=== PATIENT | female | born 1960 | race American Indian/Alaskan Native ===

== ENCOUNTER 2016-10-28 10:25 | Emergency (ER) | payer MEDICARE ==
--- NOTE | 2016-10-28 14:41 | XRay Report ---
ROUTINE CHEST, TWO VIEWS: HISTORY: Short of breath, rhonchi. The trachea, heart, mediastinal contour, lung mcgee and bony thorax are unremarkable. IMPRESSION: Unremarkable chest x-ray.
--- NOTE | 2016-10-28 14:46 | Emergency Department Report ---
ED Shortness of Breath HPI - General Chief Complaint: Dyspnea/Respdistress Stated Complaint: WHEEZING/CHEST PAIN/SWOLLEN Time Seen by Provider: 10/28/16 14:29 Source: patient Mode of arrival: Ambulatory Limitations: No Limitations - History of Present Illness Initial Comments: 56-year-old female comes in for wheezing 1 month left little swelling and shortness of breath. Patient reports she has a past medical history of bronchitis secondary to black mold exposure. Patient reports a constant nasal and chest congestion causing her to cough. Patient reports that since having difficulty walking up steps secondary to shortness of breath. She denies any nausea vomiting no fever no chills. - Related Data Home Medications Medication Instructions Recorded Confirmed Last Taken HYDROcodone/APAP 5-325 [[place]igon 11/19/13 11/19/13 Unknown 5/325 mg] Vivelle 11/19/13 11/19/13 Unknown Previous Rx's Medication Instructions Recorded Last Taken Type Amoxicillin/K Clav Tab [Augmentin 1 tab PO Q12H #14 tablet 11/19/13 Unknown Rx 875MG] Fluticasone Propionate [Flonase] 16 gm NS BID #120 spray.susp 11/19/13 Unknown Rx Prednisone [Prednisone 10 mg 10 mg PO .TAPER #1 tab.ds.pk 11/19/13 Unknown Rx (6-Day Pack, 21 Tabs)] Hyoscyamine Subl [Levsin Sl] 0.125 mg SL Q6HR PRN #14 tablet 09/22/14 Unknown Rx Omeprazole Magnesium [Prilosec Otc] 20 mg PO QDAY #7 tablet.dr 09/22/14 Unknown Rx Ondansetron [Zofran Odt] 8 mg PO TID PRN #7 tab.rapdis 09/22/14 Unknown Rx ALBUTEROL Inhaler [Proair] 2 puff IH QID PRN #1 inhalation 10/28/16 Unknown Rx Azithromycin [Zithromax] 250 mg PO QDAY #6 tablet 10/28/16 Unknown Rx Cetirizine HCl [ZyrTEC] 10 mg PO QDAY #30 capsule 10/28/16 Unknown Rx Fluticasone [Flonase] 1 spray NS QDAY #1 bottle 10/28/16 Unknown Rx Allergies Allergy/AdvReac Type Severity Reaction Status Date / Time No Known Allergies Allergy Unverified 11/19/13 11:40 ED Review of Systems ROS: Stated complaint: WHEEZING/CHEST PAIN/SWOLLEN Other details as noted in HPI Constitutional: denies: chills, fever ENT: denies: ear pain, throat pain Respiratory: cough, SOB with exertion, wheezing Cardiovascular: denies: chest pain, palpitations Gastrointestinal: denies: abdominal pain, nausea, diarrhea Genitourinary: denies: urgency, dysuria, discharge ED Past Medical Hx - Past Medical History Hx GERD: Yes Hx Arthritis: Yes (osteoperosis) Additional medical history: bulging disc L1, L2. herniated disc L4, L5 - Surgical History Additional Surgical History: hysterectomy, foot surgery, Right hand surgery, tonsilectomy - Social History Smoking Status: Former Smoker Substance Use Type: None - Medications Home Medications: Home Medications Medication Instructions Recorded Confirmed Last Taken Type Amoxicillin/K Clav Tab [Augmentin 1 tab PO Q12H #14 tablet 11/19/13 Unknown Rx 875MG] Fluticasone Propionate [Flonase] 16 gm NS BID #120 spray.susp 11/19/13 Unknown Rx HYDROcodone/APAP 5-325 [[place]igon 11/19/13 11/19/13 Unknown History 5/325 mg] Prednisone [Prednisone 10 mg 10 mg PO .TAPER #1 tab.ds.pk 11/19/13 Unknown Rx (6-Day Pack, 21 Tabs)] Vivelle 11/19/13 11/19/13 Unknown History Hyoscyamine Subl [Levsin Sl] 0.125 mg SL Q6HR PRN #14 tablet 09/22/14 Unknown Rx Omeprazole Magnesium [Prilosec Otc] 20 mg PO QDAY #7 tablet.dr 09/22/14 Unknown Rx Ondansetron [Zofran Odt] 8 mg PO TID PRN #7 tab.rapdis 09/22/14 Unknown Rx ALBUTEROL Inhaler [Proair] 2 puff IH QID PRN #1 inhalation 10/28/16 Unknown Rx Azithromycin [Zithromax] 250 mg PO QDAY #6 tablet 10/28/16 Unknown Rx Cetirizine HCl [ZyrTEC] 10 mg PO QDAY #30 capsule 10/28/16 Unknown Rx Fluticasone [Flonase] 1 spray NS QDAY #1 bottle 10/28/16 Unknown Rx ED Physical Exam - General Limitations: No Limitations General appearance: alert, in no apparent distress - Head Head exam: Present: atraumatic, normocephalic - Eye Eye exam: Present: PERRL, EOMI Pupils: Present: normal accommodation - Neck Neck exam: Present: normal inspection, lymphadenopathy (left tonsillary). Absent: tenderness - Respiratory Respiratory exam: Present: rhonchi. Absent: respiratory distress, chest wall tenderness - Cardiovascular Cardiovascular Exam: Present: regular rate, normal rhythm, normal heart sounds - GI/Abdominal GI/Abdominal exam: Present: soft. Absent: distended, tenderness ED Course Vital Signs 10/28/16 10/28/16 10/28/16 11:13 14:45 16:33 Temperature 98.8 F 98.4 F Pulse Rate 73 78 Pulse Rate [ 63 Anterior Bilateral Throughout] Respiratory 20 18 Rate Respiratory 20 Rate [Anterior Bilateral Throughout] Blood Pressure 140/92 Blood Pressure 131/72 [Left] O2 Sat by Pulse 100 98 Oximetry 10/28/16 16:48 Temperature Pulse Rate Pulse Rate [ 71 Anterior Bilateral Throughout] Respiratory Rate Respiratory 20 Rate [Anterior Bilateral Throughout] Blood Pressure Blood Pressure [Left] O2 Sat by Pulse Oximetry - Reevaluation(s) Reevaluation #1: 10/28/16 17:18 Patient is rhonchus after her first dose of DuoNeb. We reordered another DuoNeb patient seems to be clear at this time. If x-ray was clear no acute pulmonary processes 10/28/16 17:19 ED Medical Decision Making - Radiology Data Radiology results: image reviewed Ordering Physician: JEWEL STONE Date of Service: 10/28/16 Procedure(s): XR chest routine 2V Accession Number(s): [id number] cc: JEWEL STONE Fluoro Time In Minutes: ROUTINE CHEST, TWO VIEWS: HISTORY: Short of breath, rhonchi. The trachea, heart, mediastinal contour, lung mcgee and bony thorax are unremarkable. IMPRESSION: Unremarkable chest x-ray. Transcribed By: TTR Dictated By: TRE SELBY JR, MD Electronically Authenticated By: TRE SELBY JR, MD Signed Date/Time: 10/28/16 1436 - Medical Decision Making Patient's been evaluated by this provider in fast track chest x-ray was ordered order albuterol nebulizer. Most likely discharged patient with bronchitis and placed patient on Proventil Zyrtec's and a Z-Carlos. Patient verbalized understanding Critical care attestation.: If time is entered above; I have spent that time in minutes in the direct care of this critically ill patient, excluding procedure time. ED Disposition Clinical Impression: SOB (shortness of breath), Bronchitis Disposition: DISCHARGED TO HOME OR SELFCARE Is pt being admited?: No Does the pt Need Aspirin: No Instructions: Chronic Bronchitis (ED) Prescriptions: ALBUTEROL Inhaler [Proair] 2 puff IH QID PRN #1 inhalation PRN Reason: Shortness Of Breath Azithromycin [Zithromax] 250 mg PO QDAY #6 tablet Cetirizine HCl [ZyrTEC] 10 mg PO QDAY #30 capsule Fluticasone [Flonase] 1 spray NS QDAY #1 bottle Referrals: PRIMARY CARE, [Primary Care Provider] - 3-5 Days ALICIA DOBSON MD [Staff Physician] - 3-5 Days [facility] [Provider Group] - 3-5 Days [facility] [Provider Group] - 3-5 Days Forms: Work/School Release Form(ED)
[2016-10-28 15:40] VITALS: BP 131/72
[2016-10-28] MEDS ORDERED: PROVENTIL IH ONE (16:16)
== END 2016-10-28 17:19 | disposition home or self-care (01) ==
LOC: ED 10:25
DX: J40 Bronchitis, not specified as acute or chronic (principal); K21.9 Gastro-esophageal reflux disease without esophagitis; M19.90 Unspecified osteoarthritis, unspecified site; Z87.891 Personal history of nicotine dependence
CPT/HCPCS: 71020; 93005; 93010; 94640

== ENCOUNTER 2017-07-08 12:41 | Outpatient (CLI) | payer MEDICARE ==
--- NOTE | 2017-07-08 14:10 | XRay Report ---
BILATERAL HIPS WITH PELVIS, 3 VIEWS: History: Osteoarthritis of hip Findings: Bone mineralization is within normal limits. There is no evidence for fracture, dislocation or pelvic diastasis. No advanced joint pathology is detected. The soft tissues are unremarkable. Impression: Unremarkable exam.
== END 2017-07-08 12:42 | disposition home or self-care (01) ==
LOC: XRAY 12:41
DX: M16.0 Bilateral primary osteoarthritis of hip (principal)
CPT/HCPCS: 73521

== ENCOUNTER 2018-04-06 11:34 | Emergency (ER) | payer MEDICARE ==
[2018-04-06 11:49] VITALS: BP 137/71
--- NOTE | 2018-04-06 14:03 | XRay Report ---
RIGHT FOOT, 3 views: History: Trauma and pain. The bony architecture is intact. Bony alignment is normal. No soft tissue abnormalities are seen. The joint spaces appear preserved. Tiny plantar spur is noted. IMPRESSION: Unremarkable right foot.
--- NOTE | 2018-04-06 14:18 | Emergency Department Report ---
ED Lower Extremity HPI - General Chief Complaint: Extremity Injury, Lower Stated Complaint: DISABLE Time Seen by Provider: 04/06/18 13:49 Source: patient Mode of arrival: Ambulatory Limitations: No Limitations - History of Present Illness Initial Comments: 58-year-old female past medical history osteoporosis, GERD, bulging herniated disks and L-spine presents with complaint of right foot pain. As per patient approximately 3-4 days ago while opening her fridge. Door one of the panels came loose and a 6 pack of soda fell on her right foot. Patient noticed small area of swelling. Pt is ambulatory but states her the top of her right foot aches. MD Complaint: foot injury Onset/Timin -: days(s) Injury: Foot: Right (top pf right foot) Type of Injury: blunt Place: home Severity: moderate Severity scale (0 -10): 5 - Related Data Home Medications Medication Instructions Recorded Confirmed Last Taken HYDROcodone/APAP 5-325 [Marydel 11/19/13 11/19/13 Unknown 5/325 mg] Vivelle 11/19/13 11/19/13 Unknown Previous Rx's Medication Instructions Recorded Last Taken Type Amoxicillin/K Clav Tab [Augmentin 1 tab PO Q12H #14 tablet 11/19/13 Unknown Rx 875MG] Fluticasone Propionate [Flonase] 16 gm NS BID #120 spray.susp 11/19/13 Unknown Rx Prednisone [Prednisone 10 mg 10 mg PO .TAPER #1 tab.ds.pk 11/19/13 Unknown Rx (6-Day Pack, 21 Tabs)] Hyoscyamine Subl [Levsin Sl] 0.125 mg SL Q6HR PRN #14 tablet 09/22/14 Unknown Rx Omeprazole Magnesium [Prilosec Otc] 20 mg PO QDAY #7 tablet.dr 09/22/14 Unknown Rx Ondansetron [Zofran Odt] 8 mg PO TID PRN #7 tab.rapdis 09/22/14 Unknown Rx ALBUTEROL Inhaler [Proair] 2 puff IH QID PRN #1 inhalation 10/28/16 Unknown Rx Azithromycin [Zithromax] 250 mg PO QDAY #6 tablet 10/28/16 Unknown Rx Cetirizine HCl [ZyrTEC] 10 mg PO QDAY #30 capsule 10/28/16 Unknown Rx Fluticasone [Flonase] 1 spray NS QDAY #1 bottle 10/28/16 Unknown Rx Ibuprofen [Motrin] 800 mg PO Q8HR PRN #15 tablet 04/06/18 Unknown Rx Allergies Allergy/AdvReac Type Severity Reaction Status Date / Time No Known Allergies Allergy Unverified 11/19/13 11:40 ED Review of Systems ROS: Stated complaint: DISABLE Other details as noted in HPI ED Past Medical Hx - Past Medical History Hx GERD: Yes Hx Arthritis: Yes (osteoperosis) Additional medical history: bulging disc L1, L2. herniated disc L4, L5 - Surgical History Additional Surgical History: hysterectomy, foot surgery, Right hand surgery, tonsilectomy - Social History Smoking Status: Never Smoker Substance Use Type: None - Medications Home Medications: Home Medications Medication Instructions Recorded Confirmed Last Taken Type Amoxicillin/K Clav Tab [Augmentin 1 tab PO Q12H #14 tablet 11/19/13 Unknown Rx 875MG] Fluticasone Propionate [Flonase] 16 gm NS BID #120 spray.susp 11/19/13 Unknown Rx HYDROcodone/APAP 5-325 [Marydel 11/19/13 11/19/13 Unknown History 5/325 mg] Prednisone [Prednisone 10 mg 10 mg PO .TAPER #1 tab.ds.pk 11/19/13 Unknown Rx (6-Day Pack, 21 Tabs)] Vivelle 11/19/13 11/19/13 Unknown History Hyoscyamine Subl [Levsin Sl] 0.125 mg SL Q6HR PRN #14 tablet 09/22/14 Unknown Rx Omeprazole Magnesium [Prilosec Otc] 20 mg PO QDAY #7 tablet.dr 09/22/14 Unknown Rx Ondansetron [Zofran Odt] 8 mg PO TID PRN #7 tab.rapdis 09/22/14 Unknown Rx ALBUTEROL Inhaler [Proair] 2 puff IH QID PRN #1 inhalation 10/28/16 Unknown Rx Azithromycin [Zithromax] 250 mg PO QDAY #6 tablet 10/28/16 Unknown Rx Cetirizine HCl [ZyrTEC] 10 mg PO QDAY #30 capsule 10/28/16 Unknown Rx Fluticasone [Flonase] 1 spray NS QDAY #1 bottle 10/28/16 Unknown Rx Ibuprofen [Motrin] 800 mg PO Q8HR PRN #15 tablet 04/06/18 Unknown Rx ED Physical Exam - General Limitations: No Limitations General appearance: alert, in no apparent distress - Head Head exam: Present: atraumatic, normocephalic - Eye Eye exam: Present: normal appearance, PERRL, EOMI - ENT ENT exam: Present: mucous membranes moist - Neck Neck exam: Present: normal inspection - Respiratory Respiratory exam: Present: normal lung sounds bilaterally. Absent: respiratory distress - Cardiovascular Cardiovascular Exam: Present: regular rate, normal rhythm. Absent: systolic murmur, diastolic murmur, rubs, gallop - GI/Abdominal GI/Abdominal exam: Present: soft, normal bowel sounds - Extremities Exam Extremities exam: Present: normal inspection - Expanded Lower Extremity Exam Right Upper Leg exam: Present: normal inspection, full ROM Knee exam: Present: normal inspection, full ROM Lower Leg exam: Present: normal inspection, full ROM Ankle exam: Present: normal inspection, full ROM Foot/Toe exam: Present: tenderness (mild tenderness top or right foot) Neuro vascular tendon exam: Present: no vascular compromise (distal pulses strong to palpation) Gait: Positive: observed and normal 1 - Mild discomfort here - Back Exam Back exam: Present: normal inspection - Neurological Exam Neurological exam: Present: alert, oriented X3, CN II-XII intact, normal gait - Psychiatric Psychiatric exam: Present: normal affect, normal mood - Skin Skin exam: Present: warm, dry, intact, normal color. Absent: rash ED Course Vital Signs 04/06/18 11:46 Temperature 98.3 F Pulse Rate 71 Respiratory 16 Rate Blood Pressure 137/71 O2 Sat by Pulse 98 Oximetry ED Lower Extremity MDM - Medical Decision Making A/P: Foot contusion 1-xray unremarkable no fractures 2-she states she already has Marydel at home for her history of chronic back pain 3-Motrin when necessary 4- f/u with graphics coordinator Critical care attestation.: If time is entered above; I have spent that time in minutes in the direct care of this critically ill patient, excluding procedure time. ED Disposition Clinical Impression: Contusion of foot, right Qualifiers: Encounter type: initial encounter Qualified Code(s): S90.31XA - Contusion of right foot, initial encounter Disposition: TO HOME OR SELFCARE Is pt being admited?: No Does the pt Need Aspirin: No Condition: Stable Instructions: Foot Contusion (ED), RICE Therapy (ED) Prescriptions: Ibuprofen [Motrin] 800 mg PO Q8HR PRN #15 tablet PRN Reason: Pain , Severe (7-10) Referrals: [facility] [Provider Group] - 3-5 Days AKBAR DE LEON MD [Staff Physician] - 3-5 Days LADI MCKEON DPM [Staff Physician] - 3-5 Days Forms: Work/School Release Form(ED) Time of Disposition: 14:20
== END 2018-04-06 14:32 | disposition home or self-care (01) ==
LOC: ED 11:34
DX: S90.31XA Contusion of right foot, initial encounter (principal); K21.9 Gastro-esophageal reflux disease without esophagitis; M19.90 Unspecified osteoarthritis, unspecified site; Z90.710 Acquired absence of both cervix and uterus; X58.XXXA Exposure to other specified factors, initial encounter; Y93.89 Activity, other specified; Y92.89 Other specified places as the place of occurrence of the external cause; Y99.8 Other external cause status
CPT/HCPCS: 99283